=== PATIENT | female | born 1965 ===

== ENCOUNTER 2018-05-25 22:18 | Emergency (ER) | payer MEDICARE, OTHER ==
[~2018-05-25] VITALS: Ht 165.1 cm; Wt 126.5 kg
== END 2018-05-26 00:15 | disposition home or self-care (01) ==
LOC: ER 22:18
DX: F41.9 Anxiety disorder, unspecified (principal); Z88.1 Allergy status to other antibiotic agents; Z88.0 Allergy status to penicillin; Z88.8 Allergy status to other drugs, medicaments and biological substances
CPT/HCPCS: 96372; 99283-25; J2060

== ENCOUNTER 2018-09-25 13:22 | Emergency (ER) | payer MEDICARE, OTHER ==
[~2018-09-25] VITALS: Ht 165.1 cm; Wt 113.4 kg
[2018-09-25] MEDS ORDERED: Micro-K10 MEQ (13:57)
[2018-09-25] MEDS ORDERED: FURO40 PO (13:57)
[2018-09-25] MEDS ORDERED: Robaxin500 MG PO (15:24)
== END 2018-09-25 15:45 | disposition home or self-care (01) ==
LOC: ER 13:22
DX: R25.2 Cramp and spasm (principal); F41.9 Anxiety disorder, unspecified; F17.200 Nicotine dependence, unspecified, uncomplicated; Z88.1 Allergy status to other antibiotic agents; Z88.0 Allergy status to penicillin; Z88.8 Allergy status to other drugs, medicaments and biological substances; Z79.899 Other long term (current) drug therapy
CPT/HCPCS: 93926; 93971; 99283-25

== ENCOUNTER 2018-09-26 23:39 | Emergency (ER) | payer MEDICARE, OTHER ==
[~2018-09-26] VITALS: Ht 165.1 cm; Wt 114.3 kg
[~2018-09-26 23:39] MED LIST: FURO40 PO; Micro-K10 MEQ; Robaxin500 MG PO
[2018-09-27 04:30] LABS: Calcium, Ionized (POC) 1.16 mmol/L (1.10-1.46); Chloride (POC) 106 mmol/L (98-108); Creatinine (POC) 0.5 mg/dL (0.6-1.0); Glucose (ISTAT POC) 106 mg/dL (70-99); Hemoglobin (POC) 15.3 g/dL (12.0-16.0); Potassium (POC) 3.8 mmol/L (3.5-5.5); Sodium (POC) 143 mmol/L (135-148); Total CO2 (POC) 24 mmol/L (21-32)
[2018-09-27] MEDS ORDERED: Voltaren100 GM TOP (05:08)
[2018-09-27] MEDS ORDERED: NAPR500 PO (05:30)
== END 2018-09-27 05:57 | disposition home or self-care (01) ==
LOC: ER 23:39
PROVIDERS: Emergency Medicine
DX: M79.604 Pain in right leg (principal); M79.605 Pain in left leg; Z88.1 Allergy status to other antibiotic agents; Z88.0 Allergy status to penicillin; Z79.899 Other long term (current) drug therapy; Z88.8 Allergy status to other drugs, medicaments and biological substances; F41.9 Anxiety disorder, unspecified; F17.200 Nicotine dependence, unspecified, uncomplicated
CPT/HCPCS: 80047; 85014; 93971; 99284-25

== ENCOUNTER 2019-03-07 18:56 | Inpatient (IN) | payer MEDICARE, OTHER ==
[~2019-03-07] VITALS: Ht 165.1 cm; Wt 111.0 kg
[~2019-03-07 18:56] MED LIST changes: +Bactrim Ds Tab1 EACH PO; +Flagyl500 MG PO; +IBUP600 PO; +NAPR500 PO; +Voltaren100 GM TOP
[2019-03-07 19:42] LABS: BASOPHILS ABSOLUTE AUTO 0.03 K/mm3 (0.00-0.23); BASOPHILS PERCENT AUTO 0 % (0-2); EOSINOPHILS ABSOLUTE AUTO 0.07 K/mm3 (0.00-0.68); EOSINOPHILS PERCENT AUTO 1 % (0-6); Hematocrit 37.9 % (33.0-51.0); Hemoglobin 12.1 g/dL (11.5-16.0); IMMATURE GRAN ABSOLUTE AUTO 0.04 K/mm3 (0.00-0.10); IMMATURE GRAN PERCENT AUTO 0 % (0-1); LYMPHOCYTES ABSOLUTE AUTO 2.17 K/mm3 (0.84-5.20); LYMPHOCYTES PERCENT AUTO 17 % (21-46); MONOCYTES ABSOLUTE AUTO 0.43 K/mm3 (0.16-1.47); MONOCYTES PERCENT AUTO 3 % (4-13); Mean Corpuscular HGB 29.2 pg (26.0-34.0); Mean Corpuscular HGB Conc 31.9 g/dL (31.5-36.5); Mean Corpuscular Volume 91 fL (80-100); Mean Platelet Volume 9.7 fL (9.1-12.4); NEUTROPHILS ABSOLUTE AUTO 10.22 K/mm3 (1.96-9.15); NEUTROPHILS PERCENT AUTO 79 % (41-73); Platelet Count 213 K/mm3 (150-400); RDW Coefficient Variation 12.9 % (11.7-14.2); RDW Standard Deviation 43.5 fL (35.1-46.3); Red Blood Cell Count 4.15 M/mm3 (3.80-5.20); White Blood Cell Count 12.96 K/mm3 (4.00-11.30)
[2019-03-07 20:08] LABS: Alanine Aminotransfer (ALT/SGP 15 U/L (12-78); Albumin/Globulin Ratio 0.8 (0.8-1.8); Alk Phos 65 U/L (50-136); Anion Gap 3 mmol/L (6-16); Aspartate Aminotrans (AST/SGOT 8 U/L (12-37); Bilirubin, Total 0.3 mg/dL (0.1-1.0); Blood Urea Nitrogen 13 mg/dL (8-24); Bun/Creatinine Ratio 20.4 (12.0-20.0); CO2, Blood 28 mmol/L (21-32); Calcium, Blood 8.8 mg/dL (8.5-10.1); Chloride, Blood 108 mmol/L (98-108); Creatinine, Blood 0.64 mg/dL (0.40-1.00); Globulin, Blood 3.7 g/dL (2.2-4.0); Glomerular Filtration Rate >60 (60-); Glucose, Blood 88 mg/dL (70-99); Potassium, Blood 3.5 mmol/L (3.5-5.5); Sodium, Blood 139 mmol/L (136-145); Total Protein, Blood 6.7 g/dL (6.4-8.2)
[2019-03-07] MEDS ORDERED: IBUP600 PO (21:30)
[2019-03-07] MEDS ORDERED: METR500 PO (21:30)
[2019-03-07] MEDS ORDERED: Bactrim Ds Tab1 EACH PO (21:31)
[2019-03-07] MEDS ORDERED: Vitamin B-121000 MCG PO (21:31)
[2019-03-07] MEDS ORDERED: Meribin5 MG PO (21:31)
[2019-03-07] MEDS ORDERED: Apple Cider Vi500 MG PO (21:32)
[2019-03-07] MEDS ORDERED: St. John's Wor300 M1 PO (21:32)
[2019-03-07] MEDS ORDERED: BEE POLLEN550 MG PO (21:32)
[2019-03-08 05:33] LABS: Hematocrit 37.2 % (33.0-51.0); Hemoglobin 11.9 g/dL (11.5-16.0); Mean Corpuscular HGB 29.1 pg (26.0-34.0); Mean Corpuscular Volume 91 fL (80-100); Mean Platelet Volume 10.1 fL (9.1-12.4); Platelet Count 219 K/mm3 (150-400); Red Blood Cell Count 4.09 M/mm3 (3.80-5.20); White Blood Cell Count 22.96 K/mm3 (4.00-11.30)
--- NOTE | 2019-03-08 05:43 | NUR ---
SHIFT SUMMARY PATIENT ADMITTED FROM ER. PATIENT COMPLAINTS OF LOWER ABD PAIN. RECEIVED PO PAIN MEDICATIONS THEN STATED THAT THE PAIN HAD EXTENDED UP TO THE UPPER ABD REGION. GAVE PATIENT 1 DOSE OF IV DILAUDID AT WHICH POINT SHE STATED SHE WAS FEELING MUCH BETTER. PATIENT STATES MULTIPLE TIMES THAT SHE IS ANXIOUS ABOUT HOSPITALIZATION. PATIENT REQUESTED FWW TO GET UP TO BSC. STANDBY ASSIST WITH FWW TO BSC. AAOX4. IV IN LEFT AC PATENT.
[2019-03-08 05:58] LABS: BAND PERCENT MAN 26 % (0-8); BASOPHILS PERCENT MAN 0 % (0-2); EOSINOPHILS PERCENT MAN 0 % (0-6); LYMPHOCYTES ABSOLUTE MAN 1.14 K/mm3 (0.84-5.20); LYMPHOCYTES PERCENT MAN 5 % (21-46); METAMYELOCYTE ABSOLUTE MAN 0.22 K/mm3 (0.00-0.00); METAMYELOCYTE PERCENT MAN 1 % (0-0); MONOCYTES ABSOLUTE MAN 0.91 K/mm3 (0.16-1.47); MONOCYTES PERCENT MAN 4 % (4-13); NEUTROPHILS ABSOLUTE MAN 20.66 K/mm3 (1.96-9.15); SEG NEUTROPHILS PERCENT MAN 64 % (41-73); TOTAL CELLS COUNTED 100
--- NOTE | 2019-03-08 16:50 | NUR ---
PATIENT IS ALERT AND ORIENTED AND ABLE TO EXPRESS ANY NEEDS. SHE WAS FINALLY ABLE TO SLEEP AFTER CPAP INSTALLED. SHE HAS HAD COMPLAINTS OF BELLY PAIN AND WAS GIVEN PAIN MEDS PER EMAR. CALL LIGHT WITHIN REACH.
[2019-03-09 04:58] LABS: BASOPHILS ABSOLUTE AUTO 0.05 K/mm3 (0.00-0.23); BASOPHILS PERCENT AUTO 0 % (0-2); EOSINOPHILS ABSOLUTE AUTO 0.16 K/mm3 (0.00-0.68); EOSINOPHILS PERCENT AUTO 1 % (0-6); Hematocrit 36.6 % (33.0-51.0); Hemoglobin 11.6 g/dL (11.5-16.0); IMMATURE GRAN ABSOLUTE AUTO 0.07 K/mm3 (0.00-0.10); IMMATURE GRAN PERCENT AUTO 1 % (0-1); LYMPHOCYTES ABSOLUTE AUTO 2.54 K/mm3 (0.84-5.20); LYMPHOCYTES PERCENT AUTO 17 % (21-46); MONOCYTES ABSOLUTE AUTO 0.81 K/mm3 (0.16-1.47); MONOCYTES PERCENT AUTO 5 % (4-13); Mean Corpuscular HGB 29.7 pg (26.0-34.0); Mean Corpuscular HGB Conc 31.7 g/dL (31.5-36.5); Mean Platelet Volume 9.9 fL (9.1-12.4); NEUTROPHILS ABSOLUTE AUTO 11.72 K/mm3 (1.96-9.15); NEUTROPHILS PERCENT AUTO 76 % (41-73); Platelet Count 208 K/mm3 (150-400); RDW Coefficient Variation 13.1 % (11.7-14.2); RDW Standard Deviation 45.3 fL (35.1-46.3); White Blood Cell Count 15.35 K/mm3 (4.00-11.30)
[2019-03-09 04:59] LABS: Mean Corpuscular Volume 94 fL (80-100)
[2019-03-09 05:16] LABS: Anion Gap 7 mmol/L (6-16); Blood Urea Nitrogen 15 mg/dL (8-24); Bun/Creatinine Ratio 26.6 (12.0-20.0); CO2, Blood 25 mmol/L (21-32); Calcium, Blood 8.6 mg/dL (8.5-10.1); Chloride, Blood 107 mmol/L (98-108); Creatinine, Blood 0.56 mg/dL (0.40-1.00); Glomerular Filtration Rate >60 (60-); Glucose, Blood 104 mg/dL (70-99); Sodium, Blood 139 mmol/L (136-145)
--- NOTE | 2019-03-09 07:37 | NUR ---
PATIENT COMPLAINED OF LOW ABDOMENAL PAIN THRU THE SHIFT AND RECEIVD PAIN MEDS PER EMAR. THEN PT HAD A LARGE BM AND NOW PAIN AND HAS BEEN PAIN FREE SINCE. PT DID SAY THAT SHE PREFERRED TO HAVE AN ALTERNATIVE
--- NOTE | 2019-03-09 18:16 | NUR ---
SHIFT SUMMARY OX4 INDEPENDENT IN ROOM. ABDOMINAL PAIN VERY MINIMAL REFUSED OFFER FOR PAIN MEDICATION. TOLERATING ALL MEALS WELL TODAY NO C/O NAUSEA. 2 LARGE BOWEL MOVEMENTS OVER PAST 24 HOURS. REFUSED BOWEL CARE. PLEASANT. CHANGED TO PO ANTIBIOTICS THIS SHIFT WITH POSSIBLE DISCHARGE TOMORROW.
--- NOTE | 2019-03-09 19:59 | NUR ---
1916: ASSUMED CARE OF PATIENT. PT SITTING IN BED IN NO APPARENT DISTRESS. PT IS INDEPENDENT IN THE ROOM. PT STATES SHE IS HAVING TO PEE ALOT BUT NO BURNING OR DYSURIA. RESP EVEN AND UNLABORED. SHE DENIES PAIN AT THIS TIME. SHES HAD ANOTHER BM DURING THE DAY AND ATE SOFT FOODS TODAY AND IS FEELING BETTER. CALL MARY WITHIN REACH.
[2019-03-10] MEDS ORDERED: METR500 PO (11:12)
[2019-03-10] MEDS ORDERED: Bactrim Ds Tab1 EACH PO (11:14)
[2019-03-10] MEDS ORDERED: ACET500 PO (11:14)
--- NOTE | 2019-03-10 11:36 | NUR ---
PT DISCHARGED VIA W/C WITH SELF VIA TAXI TO HOME. VOUCHER PROVIDED. NO IV AT TIME OF DISCHARGE. ALL BELONGININGS RETURNED. VERBALIZED UNDERSTANDING OF DISCHARGE INSTRUCTIONS AND IMPORTANCE OF TAKING MEDICATIONS PRESCRIBED. RX FAXED TO [facility] PRIOR TO DISCHARGE.
== END 2019-03-10 11:30 | disposition home or self-care (01) | DRG 872 ==
LOC: ER 18:56 → MEDS 18:57 → ENPENDDIS 03-10 11:00 → MEDS 03-10 11:30
PROVIDERS: Emergency Medicine; Internal Medicine; ADMIT Hospitalist
DX: A41.9 Sepsis, unspecified organism (principal); K57.20 Diverticulitis of large intestine with perforation and abscess without bleeding; E66.01 Morbid (severe) obesity due to excess calories; F17.210 Nicotine dependence, cigarettes, uncomplicated; F32.9 Major depressive disorder, single episode, unspecified; F41.9 Anxiety disorder, unspecified; Z68.39 Body mass index [BMI] 39.0-39.9, adult; Z88.1 Allergy status to other antibiotic agents; Z88.0 Allergy status to penicillin
CPT/HCPCS: 36415; 74177; 80048; 80053; 81001; 83690; 85025; 87040; 87086; 94660; 94762; 96361; 96365-59; 96366; 96372; 96374; 96375; 96376; 99284-25; 99285-25; A9270-GY; G0378; J1170; J1650; J1885; J2405; J2543; J7030; Q9967

== ENCOUNTER 2021-01-06 03:24 | Inpatient (IN) | payer MEDICARE, OTHER ==
[~2021-01-06] VITALS: Ht 165.1 cm; Wt 108.0 kg
[~2021-01-06 03:24] MED LIST changes: +ACET500 PO; +Apple Cider Vi500 MG PO; +BEE POLLEN550 MG PO; +METR500 PO; +Meribin5 MG PO; +St. John's Wor300 M1 PO; +Vitamin B-121000 MCG PO
[2021-01-06 04:02] LABS: BASOPHILS ABSOLUTE AUTO 0.07 K/mm3 (0.00-0.23); BASOPHILS PERCENT AUTO 0 % (0-2); EOSINOPHILS ABSOLUTE AUTO 0.04 K/mm3 (0.00-0.68); EOSINOPHILS PERCENT AUTO 0 % (0-6); Hematocrit 41.3 % (33.0-51.0); Hemoglobin 13.6 g/dL (11.5-16.0); IMMATURE GRAN ABSOLUTE AUTO 0.05 K/mm3 (0.00-0.10); IMMATURE GRAN PERCENT AUTO 0 % (0-1); LYMPHOCYTES ABSOLUTE AUTO 2.24 K/mm3 (0.84-5.20); LYMPHOCYTES PERCENT AUTO 14 % (21-46); MONOCYTES ABSOLUTE AUTO 1.01 K/mm3 (0.16-1.47); MONOCYTES PERCENT AUTO 6 % (4-13); Mean Corpuscular HGB 29.1 pg (26.0-34.0); Mean Corpuscular HGB Conc 32.9 g/dL (31.5-36.5); Mean Corpuscular Volume 88 fL (80-100); Mean Platelet Volume 9.6 fL (9.1-12.4); NEUTROPHILS ABSOLUTE AUTO 13.08 K/mm3 (1.96-9.15); NEUTROPHILS PERCENT AUTO 79 % (41-73); Platelet Count 231 K/mm3 (150-400); RDW Standard Deviation 42.2 fL (35.1-46.3); Red Blood Cell Count 4.67 M/mm3 (3.80-5.20); White Blood Cell Count 16.49 K/mm3 (4.00-11.30)
[2021-01-06 04:19] LABS: Alanine Aminotransfer (ALT/SGP 13 U/L (12-78); Albumin/Globulin Ratio 0.7 (0.8-1.8); Alk Phos 51 U/L (50-136); Anion Gap 4 mmol/L (6-16); Aspartate Aminotrans (AST/SGOT 8 U/L (12-37); Bilirubin, Total 0.5 mg/dL (0.1-1.0); Blood Urea Nitrogen 11 mg/dL (8-24); Bun/Creatinine Ratio 18.9 (12.0-20.0); CO2, Blood 26 mmol/L (21-32); Calcium, Blood 8.8 mg/dL (8.5-10.1); Chloride, Blood 104 mmol/L (98-108); Creatinine, Blood 0.58 mg/dL (0.40-1.00); Globulin, Blood 4.2 g/dL (2.2-4.0); Glomerular Filtration Rate >60 (60-); Glucose, Blood 122 mg/dL (70-99); Potassium, Blood 3.5 mmol/L (3.5-5.5); Sodium, Blood 134 mmol/L (136-145); Total Protein, Blood 7.2 g/dL (6.4-8.2)
[2021-01-06 05:24] LABS: Source, Urine Clean Catch
[2021-01-06 05:34] LABS: Bilirubin, Urine Neg (Neg); Blood, Urine Neg (Neg); Glucose Qualitative, Urine Neg (Neg); Ketones, Urine 2+ (Neg); Leukocyte Esterase, Urine Neg (Neg); Nitrite, Urine Neg (Neg); Protein, Urine Neg (Neg); Specific Gravity, Urine 1.015 (1.003-1.022); Urobilinogen, Urine NORM (Normal)
[2021-01-06 05:36] LABS: Appearance, Urine Clear (Clear); Color, Urine Yellow (P-Yellow)
[2021-01-06] MEDS ORDERED: DICLOFENAC SOD100 GM TOP (09:30)
--- NOTE | 2021-01-06 16:59 | NUR ---
SHIFT SUMMARY ED ADMIT. MEDICATED X2 FOR PAIN, X1 FOR NAUSEA. DENIES SHORTNESS OF BREATH. UP SBA W/FWW TO BR. TOLERATING CLEAR LIQUID DIET. PLEASANT AND COOPERATIVE WITH CARE. PENDING TRANSFER TO SURGICAL FLOOR RM [id number].
--- NOTE | 2021-01-07 03:25 | NUR ---
A/OX4. VSS ON RA. TOLERATED CPAP WHEN ASLEEP. PAIN MANAGED WELL W. NORCO AND FENTANYL. TOLERATING CLEAR FLUIDS WELL. CONTINOUS IV FLUIDS INFUSING. INDEPENDENT IN ROOM. USING CALL LIGHT TO MAKE NEEDS KNOWN.
[2021-01-07 04:13] LABS: Hematocrit 36.8 % (33.0-51.0); Hemoglobin 12.1 g/dL (11.5-16.0); Mean Corpuscular HGB 29.6 pg (26.0-34.0); Mean Corpuscular HGB Conc 32.9 g/dL (31.5-36.5); Mean Corpuscular Volume 90 fL (80-100); Mean Platelet Volume 9.6 fL (9.1-12.4); Platelet Count 214 K/mm3 (150-400); RDW Coefficient Variation 13.2 % (11.7-14.2); RDW Standard Deviation 43.7 fL (35.1-46.3); Red Blood Cell Count 4.09 M/mm3 (3.80-5.20); White Blood Cell Count 11.81 K/mm3 (4.00-11.30)
[2021-01-07 04:31] LABS: Anion Gap 3 mmol/L (6-16); Blood Urea Nitrogen 9 mg/dL (8-24); Bun/Creatinine Ratio 15.1 (12.0-20.0); CO2, Blood 29 mmol/L (21-32); Calcium, Blood 8.6 mg/dL (8.5-10.1); Chloride, Blood 106 mmol/L (98-108); Glomerular Filtration Rate >60 (60-); Glucose, Blood 100 mg/dL (70-99); Potassium, Blood 3.6 mmol/L (3.5-5.5); Sodium, Blood 138 mmol/L (136-145)
--- NOTE | 2021-01-07 17:42 | NUR ---
SHIFT SUMMARY PT AOOX4. PT UP AND AMBULATING FREQUENTLY IN ROOM. PAIN 8/10 AT BEGINNING OF SHIFT, REQUIRING 2 PAIN PILLS FOUR HOURS. NEW ORDERS FOR TORODOL GIVEN, PT REPORTS PAIN IS MUCH IMPROVED NOW RATES AT 3/10. TOOK A SHOWER TODAY. TOLERATING CLEAR LIQUID DIET WELL. DENIES FLATUS OR BM, STARTING STOOL SOFTNERS TONIGHT. PLAN IS TO CONTINUE WITH ANTIBIOTICS AND PAIN MANAGEMENT.
--- NOTE | 2021-01-08 06:42 | NUR ---
A/OX4. VSS ON RA. TOLERATED CPAP WHEN ASLEEP. PAIN MANAGED WELL W/ PRN PAIN MEDS. CONTINOUS FLUIDS INFUSING. ZOFRAN GIVEN FOR NAUSEA. SBA TO TOILET W/ FWW. PATIENT NO ABLE TO SLEEP WELL. WOULD LIKE [facility] TOMORROW NIGHT.
--- NOTE | 2021-01-08 19:44 | NUR ---
SHIFT SUMMARY PT HAS HAD INCREASED ABD PAIN THIS AFTERNOON. PAIN HAS BEEN MANAGED WITH FENTANYL AND NORCO. PT ENCOURAGED TO AMBULATE AND WAS GIVEN MIRALAX TO ASSIST WITH CONSTIPATION. PT IS TOLERATING FULL LIQUID DIET ALTHOUGH SHE DOES APPEAR TO HAVE SOME INCREASED PAIN AFTER EATING. REPORT GIVEN TO LEE BURRELL.
[2021-01-09 04:54] LABS: BASOPHILS ABSOLUTE AUTO 0.08 K/mm3 (0.00-0.23); BASOPHILS PERCENT AUTO 1 % (0-2); EOSINOPHILS ABSOLUTE AUTO 0.13 K/mm3 (0.00-0.68); EOSINOPHILS PERCENT AUTO 2 % (0-6); Hematocrit 36.5 % (33.0-51.0); Hemoglobin 11.9 g/dL (11.5-16.0); IMMATURE GRAN ABSOLUTE AUTO 0.03 K/mm3 (0.00-0.10); IMMATURE GRAN PERCENT AUTO 0 % (0-1); LYMPHOCYTES PERCENT AUTO 34 % (21-46); MONOCYTES ABSOLUTE AUTO 0.65 K/mm3 (0.16-1.47); MONOCYTES PERCENT AUTO 10 % (4-13); Mean Corpuscular HGB 29.2 pg (26.0-34.0); Mean Corpuscular HGB Conc 32.6 g/dL (31.5-36.5); Mean Corpuscular Volume 90 fL (80-100); NEUTROPHILS ABSOLUTE AUTO 3.63 K/mm3 (1.96-9.15); NEUTROPHILS PERCENT AUTO 53 % (41-73); Platelet Count 254 K/mm3 (150-400); RDW Coefficient Variation 12.7 % (11.7-14.2); RDW Standard Deviation 41.2 fL (35.1-46.3); Red Blood Cell Count 4.07 M/mm3 (3.80-5.20); White Blood Cell Count 6.82 K/mm3 (4.00-11.30)
--- NOTE | 2021-01-09 05:44 | NUR ---
SHIFT SUMMARY S/P ACUTE DIVERTICULITIS W/ MICRO PERF, PT CONTINUES TO BE NON SURGICAL, A/O X4, VSS, TOLERATING PO, VOIDING, PASSING FLATUS BUT NO BM, BOWEL CARE CONTINUES, PAIN WELL MANAGED PER EMAR. CALL LIGHT IN REACH, WILL CTM AND REPORT TO MYNOR PHILLIPS RN.
[2021-01-09] MEDS ORDERED: HYDR1TAB94 PO (13:02)
[2021-01-09] MEDS ORDERED: CEFP200 PO (13:03)
--- NOTE | 2021-01-09 14:08 | NUR ---
DISCHARGE PT PROVIDED WITH WRITTEN AND VERBAL DISCHARGE INSTRUCTIONS, SHE REPORTED UNDERSTANDING INSTRUCTIONS. PT CALLED FOR A TAXI FOR TRANSPORT HOME. PT EDUCATED TO NOT DRIVE WHILE TAKING PAIN MEDICATIONS. PRESCRIPTION FOR MEDICATIONS PROVIDED. BELONGINGS SENT HOME WITH PT. PT ASSISTED OUT IN W/C BY THIS RN.
== END 2021-01-09 13:53 | disposition home or self-care (01) | DRG 392 ==
LOC: ER 03:24 → ERHOLD 03:25 → MEDS 09:15 → SURS 18:56
PROVIDERS: Emergency Medicine; ADMIT Surgery
DX: K57.20 Diverticulitis of large intestine with perforation and abscess without bleeding (principal); F41.9 Anxiety disorder, unspecified; F17.210 Nicotine dependence, cigarettes, uncomplicated; Z90.710 Acquired absence of both cervix and uterus; Z98.890 Other specified postprocedural states; Z88.0 Allergy status to penicillin; Z88.1 Allergy status to other antibiotic agents; Z88.8 Allergy status to other drugs, medicaments and biological substances; Z79.899 Other long term (current) drug therapy
CPT/HCPCS: 36415; 74177; 80048; 80053; 81003; 83690; 85025; 85027; 94660; 94760; 94762; 96365-59; 96375; 99285-25; A9270; J0694; J1885; J2270; J2405; J3010; J7030; J7120; Q9967

== ENCOUNTER 2021-04-24 01:27 | Inpatient (IN) | payer MEDICARE, OTHER ==
[~2021-04-24] VITALS: Ht 165.1 cm; Wt 107.5 kg
[~2021-04-24 01:27] MED LIST changes: +CEFP200 PO; +DICLOFENAC SOD100 GM TOP; +HYDR1TAB94 PO
[2021-04-24 02:31] LABS: BASOPHILS ABSOLUTE AUTO 0.06 K/mm3 (0.00-0.23); BASOPHILS PERCENT AUTO 1 % (0-2); EOSINOPHILS ABSOLUTE AUTO 0.05 K/mm3 (0.00-0.68); EOSINOPHILS PERCENT AUTO 0 % (0-6); Hematocrit 46.4 % (33.0-51.0); Hemoglobin 15.2 g/dL (11.5-16.0); IMMATURE GRAN ABSOLUTE AUTO 0.04 K/mm3 (0.00-0.10); IMMATURE GRAN PERCENT AUTO 0 % (0-1); LYMPHOCYTES ABSOLUTE AUTO 1.72 K/mm3 (0.84-5.20); LYMPHOCYTES PERCENT AUTO 13 % (21-46); MONOCYTES ABSOLUTE AUTO 0.58 K/mm3 (0.16-1.47); MONOCYTES PERCENT AUTO 4 % (4-13); Mean Corpuscular HGB 29.3 pg (26.0-34.0); Mean Corpuscular HGB Conc 32.8 g/dL (31.5-36.5); Mean Corpuscular Volume 90 fL (80-100); Mean Platelet Volume 9.6 fL (9.1-12.4); NEUTROPHILS ABSOLUTE AUTO 10.72 K/mm3 (1.96-9.15); NEUTROPHILS PERCENT AUTO 81 % (41-73); Platelet Count 261 K/mm3 (150-400); RDW Coefficient Variation 13.5 % (11.7-14.2); RDW Standard Deviation 44.6 fL (35.1-46.3); Red Blood Cell Count 5.18 M/mm3 (3.80-5.20); White Blood Cell Count 13.17 K/mm3 (4.00-11.30)
[2021-04-24 02:43] LABS: Alanine Aminotransfer (ALT/SGP 27 U/L (12-78); Albumin, Blood 3.5 g/dL (3.4-5.0); Albumin/Globulin Ratio 0.9 (0.8-1.8); Alk Phos 61 U/L (50-136); Anion Gap 4 mmol/L (6-16); Aspartate Aminotrans (AST/SGOT 16 U/L (12-37); Bilirubin, Total 0.5 mg/dL (0.1-1.0); Blood Urea Nitrogen 12 mg/dL (8-24); Bun/Creatinine Ratio 19.2 (12.0-20.0); CO2, Blood 29 mmol/L (21-32); Calcium, Blood 9.3 mg/dL (8.5-10.1); Chloride, Blood 106 mmol/L (98-108); Creatinine, Blood 0.63 mg/dL (0.40-1.00); Glomerular Filtration Rate >60 (60-); Glucose, Blood 123 mg/dL (70-99); Potassium, Blood 3.9 mmol/L (3.5-5.5); Sodium, Blood 139 mmol/L (136-145); Total Protein, Blood 7.5 g/dL (6.4-8.2)
[2021-04-24 03:49] LABS: Source, Urine Clean Catch
[2021-04-24 03:51] LABS: Bilirubin, Urine Neg (Neg); Blood, Urine Neg (Neg); Glucose Qualitative, Urine Neg (Neg); Ketones, Urine Neg (Neg); Leukocyte Esterase, Urine Neg (Neg); Nitrite, Urine Neg (Neg); Protein, Urine Neg (Neg); Specific Gravity, Urine 1.015 (1.003-1.022); Urobilinogen, Urine NORM (Normal)
[2021-04-24 03:54] LABS: Appearance, Urine Clear (Clear); Color, Urine Yellow (P-Yellow)
[2021-04-24 06:46] LABS: SARS-Cov-2 (COVID-19) PCR, MMC NEGATIVE (NEGATIVE)
--- NOTE | 2021-04-24 18:42 | NUR ---
SHIFT ASSESSMENT UP TO BATHROOM INDEPENDENTLY PUSHING IV POLE. MEDICATED FOR PAIN APPROX Q4 HOURS. FEELS BLOATED AND HAS TENDERNESS WITH PALPATION. DR. OWENS IN TO SEE PT WITH CURRENT DESICION TO TREAT CONSERVATIVELY. NO NAUSEA.
--- NOTE | 2021-04-25 19:00 | NUR ---
ASSUMED CARE RECEIVED REPORT FROM INDRA SANTOS. PT RESTING, IN NAD. NO ACUTE NEEDS ASSESSED AT THIS TIME. CALL LIGHT, POSSESSIONS IN REACH, BED IN LOW AND LOCKED POSITION.
--- NOTE | 2021-04-25 19:26 | NUR ---
SHIFT SUMMARY PT HAS BEEN RECEIVING BOWEL PREP FOR MOST OF DAY AND HAS TOLERATED IT WELL. HAS BEEN HAVING BMS WHICH REPORTED ITS TURNING YELLOW THIS EVENING. INDEPENDENT TO BATHROOM. NO PAIN UNTIL THIS EVENING. CHEERFUL AND HOPING TO HAVE SURGERY SOMETIME IN NEXT 2 DAYS.
[2021-04-26 05:24] LABS: Hematocrit 38.7 % (33.0-51.0); Hemoglobin 12.8 g/dL (11.5-16.0); Mean Corpuscular HGB 29.9 pg (26.0-34.0); Mean Corpuscular HGB Conc 33.1 g/dL (31.5-36.5); Mean Corpuscular Volume 90 fL (80-100); Mean Platelet Volume 9.8 fL (9.1-12.4); Platelet Count 205 K/mm3 (150-400); RDW Coefficient Variation 13.2 % (11.7-14.2); RDW Standard Deviation 44.2 fL (35.1-46.3); Red Blood Cell Count 4.28 M/mm3 (3.80-5.20); White Blood Cell Count 12.05 K/mm3 (4.00-11.30)
[2021-04-26 05:48] LABS: Albumin, Blood 2.7 g/dL (3.4-5.0); Anion Gap 7 mmol/L (6-16); Blood Urea Nitrogen 4 mg/dL (8-24); Bun/Creatinine Ratio 7.8 (12.0-20.0); CO2, Blood 25 mmol/L (21-32); Calcium, Blood 8.7 mg/dL (8.5-10.1); Chloride, Blood 108 mmol/L (98-108); Creatinine, Blood 0.52 mg/dL (0.40-1.00); Glomerular Filtration Rate >60 (60-); Glucose, Blood 114 mg/dL (70-99); Phosphorus, Blood 2.1 mg/dL (2.5-4.9); Potassium, Blood 3.5 mmol/L (3.5-5.5); Prealbumin, Blood 13.5 mg/dL (20.0-40.0); Sodium, Blood 140 mmol/L (136-145)
--- NOTE | 2021-04-26 06:36 | NUR ---
SHIFT SUMMARY PT RESTING, APPEARS TO BE COMFORTABLE. SLEPT ON AND OFF T/O NIGHT. PT APPEARED TO HAVE A ROUGH NIGHT, HAVING ONGOING LLQ ABD PAIN, WITH MINIMAL RELIEF FROM PAIN MEDICATION. PAIN APPEARS TO BE BETTER CONTROLLED AFTER INCREASING DOSE OF IV FENTANYL. VS REVIEWED,WNL; BP'S STABLE. MEDICATED FOR NAUSEA X1. NO ACUTE NEEDS ASSESSED AT THIS TIME. DENIES NEEDS. CALL LIGHT, POSSESSIONS IN REACH, BED IN LOW AND LOCKED POSITION. IVF INFUSING ORDERED. WILL REPORT OFF TO ONCOMING RN.
--- NOTE | 2021-04-26 17:00 | NUR ---
SHIFT SUMMARY PT INDEPENDENT IN ROOM TO BATHROOM. TOLERATING SIPS OF CLEAR LIQUIDS WITH NO INCREASE IN PAIN OR NAUSEA. PLANS FOR SURGERY TOMORROW. ANXIOUS BUT HOPING TO BE DONE WITH DEALING WITH ONGOING ISSUE.
--- NOTE | 2021-04-26 19:05 | NUR ---
ASSUMED CARE RECEIVED REPORT FROM INDRA SANTOS. PT RESTING, TALKING TO FAMILY. IN NAD. DENIES PAIN AT THIS TIME. CALL LIGHT, POSSESSIONS IN REACH.
--- NOTE | 2021-04-27 04:07 | NUR ---
SHIFT SUMMARY PT ASLEEP, IN NAD. APPEARED TO SLEEP ON AND OFF T/O NIGHT. HAS BEEN NPO SINCE MIDNIGHT FOR SURGERY THIS AM. MEDICATED X1 FOR C/O DIFFUSE LOWER ABD PAIN, WITH GOOD RELIEF. NO C/O NAUSEA THUS FAR THIS SHIFT. APPEARS TO BE LESS ANXIOUS REGARDING HER PROCEDURE THIS AM. NO ACUTE NEEDS ASSESSED AT THIS TIME. CALL LIGHT, POSSESSIONS IN REACH, BED IN LOW AND LOCKED POSITION. IVF INFUSING ORDERED. WILL CONTINUE TO PROVIDE CARE UNTIL REPORT GIVEN TO ONCOMING RN.
--- NOTE | 2021-04-27 14:46 | NUR ---
PATEINT INTO [facility] VIA [facility] FROM [facility]. History, Chart, Medications and Allergies reviewed before start of procedure.Patient confirms NPO status and agrees with scheduled surgery.
--- NOTE | 2021-04-27 21:15 | NUR ---
PT ARRIVED FROM OR PT ARRIVED FROM OR VIA GURNEY. PT COMPLAINS OF PAIN AND NAUSEA UPON ARRIVAL MEDICATED PER EMAR. PT ASSESSMENT COMPLETED @ THIS TIME.
[2021-04-28 04:22] LABS: Hematocrit 38.5 % (33.0-51.0); Hemoglobin 12.8 g/dL (11.5-16.0); Mean Corpuscular HGB 29.6 pg (26.0-34.0); Mean Corpuscular HGB Conc 33.2 g/dL (31.5-36.5); Mean Corpuscular Volume 89 fL (80-100); Mean Platelet Volume 9.5 fL (9.1-12.4); Platelet Count 246 K/mm3 (150-400); RDW Coefficient Variation 12.9 % (11.7-14.2); RDW Standard Deviation 42.4 fL (35.1-46.3); Red Blood Cell Count 4.33 M/mm3 (3.80-5.20); White Blood Cell Count 12.11 K/mm3 (4.00-11.30)
[2021-04-28 04:41] LABS: Anion Gap 7 mmol/L (6-16); Blood Urea Nitrogen 7 mg/dL (8-24); Bun/Creatinine Ratio 14.2 (12.0-20.0); CO2, Blood 24 mmol/L (21-32); Calcium, Blood 8.6 mg/dL (8.5-10.1); Chloride, Blood 109 mmol/L (98-108); Creatinine, Blood 0.49 mg/dL (0.40-1.00); Glomerular Filtration Rate >60 (60-); Glucose, Blood 122 mg/dL (70-99); Potassium, Blood 3.5 mmol/L (3.5-5.5); Sodium, Blood 140 mmol/L (136-145)
--- NOTE | 2021-04-28 05:09 | NUR ---
SHIFT SUMMARY PT A&O AND IN PLEASENT MOOD T/O SHIFT. VSS. PAIN MANAGED PER EMAR. 5 LAP SITES ON ABD CDI. SCDS IN PLACE. RESTING IN BED T/O NIGHT. BT PRESENT IN ALL 4QS. TOLERATING ORAL INTAKE WELL. CALL LIGHT W/IN REACH.
--- NOTE | 2021-04-28 17:02 | NUR ---
SHIFT SUMMARY A/OX4. VITAL SIGNS STABLE. POD1 FOR SIG COLECTOMY WITH L OOPHERECTOMY. 5 LAP SITES, DERMABONDED AND OPEN TO AIR. DC'D WORLEY TODAY. PT VOIDING BUT DENIES PASSING FLATUS AND BOWEL MOVEMENT ON THIS SHIFT. PT TOLERATING CLEAR LIQ PO INTAKE, TO ADVANCE TOLERATED. AMBULATING INDEPENDENTLY IN RM. BEING TREATED PER EMAR FOR PAIN. WILL REPORT TO ONCOMING RN.
--- NOTE | 2021-04-28 23:40 | NUR ---
PT C/O ITCHING. ON-CALL PHYSICIAN NOTIFIED, NEW ORDER FOR BENADRYL OBTAINED.
[2021-04-29 04:52] LABS: Hematocrit 36.7 % (33.0-51.0); Hemoglobin 12.2 g/dL (11.5-16.0); Mean Corpuscular HGB Conc 33.2 g/dL (31.5-36.5); Mean Corpuscular Volume 90 fL (80-100); Mean Platelet Volume 9.6 fL (9.1-12.4); Platelet Count 266 K/mm3 (150-400); RDW Coefficient Variation 13.2 % (11.7-14.2); RDW Standard Deviation 43.5 fL (35.1-46.3); Red Blood Cell Count 4.07 M/mm3 (3.80-5.20); White Blood Cell Count 10.07 K/mm3 (4.00-11.30)
[2021-04-29 05:13] LABS: Anion Gap 4 mmol/L (6-16); Blood Urea Nitrogen 12 mg/dL (8-24); Bun/Creatinine Ratio 15.4 (12.0-20.0); CO2, Blood 27 mmol/L (21-32); Chloride, Blood 106 mmol/L (98-108); Creatinine, Blood 0.78 mg/dL (0.40-1.00); Glomerular Filtration Rate >60 (60-); Glucose, Blood 112 mg/dL (70-99); Potassium, Blood 3.3 mmol/L (3.5-5.5); Sodium, Blood 137 mmol/L (136-145)
--- NOTE | 2021-04-29 05:45 | NUR ---
SHIFT SUMMARY: PATTI IS A&OX4. VSS, NO ACUTE EVENTS OVERNIGHT. SHE IS TOLERATING PO INTAKE WELL, INDEPENDENT IN THE ROOM, AND USING THE INCENTIVE SPIROMETER. SHE DID WEAR THE CPAP WHILE SLEEPING THIS SHIFT. SHE USES THE CALL LIGHT APPROPRIATELY. IV TO RIGHT FOREARM PATENT. ABDOMINAL BINDER OFFERED FOR COMFORT. SHE IS LYING IN BED WITH THE CPAP IN PLACE, RESPIRATIONS EVEN AND UNLABORED. CALL LIGHT IN REACH. WILL REPORT TO DAY SHIFT RN.
--- NOTE | 2021-04-29 16:38 | NUR ---
SHIFT SUMMARY A/OX4 AND V/S/S STABLE. POD2 LAP SIGMOID COLECTOMY WITH REMOVAL OF L OVARY. INCISIONS C/D/I, OPEN TO AIR WITH DERMABOND. INDEPENDENT IN RM, AMBULATING HALLWAYS. NO FLATUS REPORTED AND NO BOWEL MOVEMENT THIS SHIFT. PT STATES SHE "FEELS LIKE SHE NEEDS TO PASS GAS, BUT NOTHING IS COMING OUT." ENCOURAGING PT TO CONTINUE AMBULATING WHEN SHE FEELS UP TO IT. PT SHOWERED TODAY, AND BEING TREATED PER EMAR FOR PAIN WITH PO PAIN MEDICATIONS. PT PRACTICING DEEP BREATHING WITH I/S. VOIDING WELL. WILL REPORT TO ONCOMING RN.
--- NOTE | 2021-04-29 18:25 | NUR ---
PT REPORTS PASSING FLATUS.
[2021-04-30 04:14] LABS: Albumin, Blood 2.1 g/dL (3.4-5.0); Anion Gap 4 mmol/L (6-16); Blood Urea Nitrogen 8 mg/dL (8-24); CO2, Blood 27 mmol/L (21-32); Calcium, Blood 8.6 mg/dL (8.5-10.1); Chloride, Blood 109 mmol/L (98-108); Creatinine, Blood 0.57 mg/dL (0.40-1.00); Glomerular Filtration Rate >60 (60-); Glucose, Blood 137 mg/dL (70-99); Phosphorus, Blood 3.5 mg/dL (2.5-4.9); Potassium, Blood 3.7 mmol/L (3.5-5.5); Sodium, Blood 140 mmol/L (136-145)
--- NOTE | 2021-04-30 08:05 | NUR ---
SHIFT SUMMARY: PATTI IS A&OX4, INDEPENDENT IN THE ROOM, TOLERATING PO INTAKE WELL, PASSING FLATUS AND ONE BM THIS SHIFT. IV TO L FOREARM PATENT. ABDOMINAL BINDER FOR COMFORT. SHE STATES THAT THE MAJORITY OF HER PAIN IS AT THE RIGHT LOWER LAP SITE, OTHERWISE SHE FEELS HER PAIN IS WELL CONTROLLED. SHE IS SITTING UP IN BED WITH THE CALL LIGHT IN REACH. REPORT GIVEN TO DAY SHIFT RN.
--- NOTE | 2021-04-30 13:27 | NUR ---
EDEMA PT C/O INCREASED EDEMA TO BLE AND INCREASED PAIN TO L KNEE. ICE PACKS PLACED TO L KNEE FOR COMFORT AND ADVISED PT TO ELEVATE BLE WHEN AT REST.
--- NOTE | 2021-04-30 13:57 | NUR ---
EDEMA TO BLE PT C/O OF INCREASED EDEMA TO BLE AND INCREASED PAIN TO L KNEE. ICE PACKS PROVIDED FOR COMFORT. ENCOURAGED PT TO ELEVATE LEGS WHEN AT REST. REPORTED TO DR PATEL. ADVISED TO ENCOURGE PT TO ALSO AMBULATE. ORDERS OBTAINED FOR OT DOSE LASIX.
--- NOTE | 2021-04-30 17:25 | NUR ---
SUMMARY NO ACUTE CHANGES T/O SHIFT. PT MEDICATED PER ORDERS FOR NAUSEA W/PAIN MEDS. PT HAS BLE EDEMA, DISCUSSED W/DR PATEL AND OT DOSE OF LASIX ORDERED AND ADMINISTERED. TOLERATING FULL LIQUID DIET. INDEPENDENT IN ROOM. CALL LIGHT IN REACH.
--- NOTE | 2021-05-01 04:42 | NUR ---
SHIFT SUMMARY POD 4 FOR A LAP SIGMOID COLECTOMY W/ L OOPHARECTOMY. X5 LAP ABD SITES OPEN TO AIR W/ SOME BRUISING JOSE INCISION SITES. PT HAS REPORTED SOME PAIN AND WAS MEDICATED PER EMAR. PT IS TOLERATING FULL LIQUID DIET AND FLUIDS W/O REPORT OF N/V. PT DOES REPORT NAUSEA W/PAIN MEDS AND WAS MEDICATED PER EMAR. PT IS INDEPENDENT IN THE ROOM AND CALLS APPROPRIATELY. PT IS A&O X4 AND VERY PLEASANT. PT WORE HER CPAP WHILE SLEEPING. CURRENTLY RESTING IN HER BED AND CALL LIGHT IS WITHIN REACH.
[2021-05-01 04:43] LABS: BASOPHILS ABSOLUTE AUTO 0.05 K/mm3 (0.00-0.23); BASOPHILS PERCENT AUTO 1 % (0-2); EOSINOPHILS ABSOLUTE AUTO 0.24 K/mm3 (0.00-0.68); EOSINOPHILS PERCENT AUTO 3 % (0-6); Hematocrit 37.2 % (33.0-51.0); Hemoglobin 12.3 g/dL (11.5-16.0); IMMATURE GRAN ABSOLUTE AUTO 0.05 K/mm3 (0.00-0.10); IMMATURE GRAN PERCENT AUTO 1 % (0-1); LYMPHOCYTES ABSOLUTE AUTO 2.13 K/mm3 (0.84-5.20); LYMPHOCYTES PERCENT AUTO 30 % (21-46); MONOCYTES ABSOLUTE AUTO 0.62 K/mm3 (0.16-1.47); MONOCYTES PERCENT AUTO 9 % (4-13); Mean Corpuscular HGB 29.8 pg (26.0-34.0); Mean Corpuscular HGB Conc 33.1 g/dL (31.5-36.5); Mean Corpuscular Volume 90 fL (80-100); Mean Platelet Volume 9.5 fL (9.1-12.4); NEUTROPHILS ABSOLUTE AUTO 4.11 K/mm3 (1.96-9.15); NEUTROPHILS PERCENT AUTO 57 % (41-73); Platelet Count 300 K/mm3 (150-400); RDW Coefficient Variation 13.2 % (11.7-14.2); RDW Standard Deviation 43.7 fL (35.1-46.3); Red Blood Cell Count 4.13 M/mm3 (3.80-5.20)
[2021-05-01] MEDS ORDERED: OXYC5 PO (10:08)
[2021-05-01] MEDS ORDERED: Acetaminophen650 M1 PO (10:08)
--- NOTE | 2021-05-01 12:59 | NUR ---
DISCHARGED DC'D IV, CATHETER INTACT. REVIEWED DC INSTRUCTIONS W/PT; VERBALIZED UNDERSTANDING. PT LEFT UNIT IN WC W/POSSESSIONS, DC PAPERWORK AND PRESCRIPTION IN HAND TO RIDE WAITING OUTSIDE.
== END 2021-05-01 12:55 | disposition home or self-care (01) | DRG 853 ==
LOC: ER 01:27 → MEDS 01:36 → SURS 04-25 10:13
PROVIDERS: Internal Medicine; Obstetrics & Gynecology; Student in an Organized Health Care Education/Training Program; Surgery; ADMIT Family Medicine
PROC: 8E0W4CZ Robotic Assisted Procedure of Trunk Region, Percutaneous Endoscopic Approach (ICD-10-PCS; 2021-04-27)
PROC: 0UB14ZZ Excision of Left Ovary, Percutaneous Endoscopic Approach (ICD-10-PCS; principal; 2021-04-27 11:30)
PROC: 0DBN4ZZ Excision of Sigmoid Colon, Percutaneous Endoscopic Approach (ICD-10-PCS; 2021-04-27 11:30)
DX: A41.9 Sepsis, unspecified organism (principal); K65.0 Generalized (acute) peritonitis; K57.20 Diverticulitis of large intestine with perforation and abscess without bleeding; N70.02 Acute oophoritis; I87.2 Venous insufficiency (chronic) (peripheral); E87.6 Hypokalemia; Z20.822 Contact with and (suspected) exposure to COVID-19; G47.33 Obstructive sleep apnea (adult) (pediatric); F41.8 Other specified anxiety disorders; E66.01 Morbid (severe) obesity due to excess calories; Z99.89 Dependence on other enabling machines and devices; F17.210 Nicotine dependence, cigarettes, uncomplicated; Z71.6 Tobacco abuse counseling; Z68.38 Body mass index [BMI] 38.0-38.9, adult; Z71.3 Dietary counseling and surveillance; Z90.710 Acquired absence of both cervix and uterus; Z88.0 Allergy status to penicillin; Z88.1 Allergy status to other antibiotic agents; Z79.899 Other long term (current) drug therapy
CPT/HCPCS: 36415; 74177; 80048; 80053; 80069; 81003; 83605; 84134; 85025; 85027; 88305; 88307; 94660; 94762; 96365-59; 96367; 96372; 96375; 96376; 99285-25; A9270; G0378; J0330; J0696; J1100; J1170; J1650; J1885; J2250; J2270; J2370; J2405; J2704; J2710; J3010; J7030; J7050; Q9967; U0004

== ENCOUNTER 2021-08-07 08:32 | Day surgery (SDC) | payer MEDICARE, OTHER ==
[~2021-08-07] VITALS: Ht 165.1 cm; Wt 102.9 kg
[~2021-08-07 08:32] MED LIST changes: +Acetaminophen650 M1 PO; +OXYC5 PO
[2021-08-07] MEDS ORDERED: CENTRUM SILVER1 EAC2 PO (09:03)
[2021-08-07] MEDS ORDERED: EXEDRIN (09:03)
== END 2021-08-07 10:59 | disposition home or self-care (01) ==
LOC: ORSCSDS 08:32
PROVIDERS: Surgery
PROC: 0DBM8ZX Excision of Descending Colon, Via Natural or Artificial Opening Endoscopic, Diagnostic (ICD-10-PCS; principal; 2021-08-07 09:45)
DX: Z90.49 Acquired absence of other specified parts of digestive tract (principal); Z86.010 Personal history of colon polyps; D12.4 Benign neoplasm of descending colon; R11.0 Nausea; F17.210 Nicotine dependence, cigarettes, uncomplicated; J44.9 Chronic obstructive pulmonary disease, unspecified; G47.33 Obstructive sleep apnea (adult) (pediatric); K21.9 Gastro-esophageal reflux disease without esophagitis; F41.9 Anxiety disorder, unspecified; Z79.899 Other long term (current) drug therapy; E66.01 Morbid (severe) obesity due to excess calories; Z68.37 Body mass index [BMI] 37.0-37.9, adult
CPT/HCPCS: 88305; J2250; J2704; J7120

== ENCOUNTER 2022-07-24 01:09 | Emergency (ER) | payer MEDICARE, OTHER ==
[~2022-07-24] VITALS: Ht 165.1 cm; Wt 106.6 kg
[~2022-07-24 01:09] MED LIST changes: +CENTRUM SILVER1 EAC2 PO; +EXEDRIN
[2022-07-24 04:28] LABS: BASOPHILS ABSOLUTE AUTO 0.07 K/mm3 (0.00-0.23); BASOPHILS PERCENT AUTO 1 % (0-2); EOSINOPHILS ABSOLUTE AUTO 0.08 K/mm3 (0.00-0.68); EOSINOPHILS PERCENT AUTO 1 % (0-6); Hematocrit 42.4 % (33.0-51.0); Hemoglobin 14.3 g/dL (11.5-16.0); IMMATURE GRAN ABSOLUTE AUTO 0.03 K/mm3 (0.00-0.10); IMMATURE GRAN PERCENT AUTO 0 % (0-1); LYMPHOCYTES ABSOLUTE AUTO 3.01 K/mm3 (0.84-5.20); LYMPHOCYTES PERCENT AUTO 30 % (21-46); MONOCYTES ABSOLUTE AUTO 0.64 K/mm3 (0.16-1.47); MONOCYTES PERCENT AUTO 6 % (4-13); Mean Corpuscular HGB 29.2 pg (26.0-34.0); Mean Corpuscular HGB Conc 33.7 g/dL (31.5-36.5); Mean Corpuscular Volume 87 fL (80-100); Mean Platelet Volume 9.4 fL (9.1-12.4); NEUTROPHILS PERCENT AUTO 62 % (41-73); Platelet Count 225 K/mm3 (150-400); RDW Standard Deviation 41.1 fL (35.1-46.3); Red Blood Cell Count 4.89 M/mm3 (3.80-5.20); White Blood Cell Count 9.93 K/mm3 (4.00-11.30)
[2022-07-24 04:44] LABS: Albumin, Blood 3.5 g/dL (3.4-5.0); Albumin/Globulin Ratio 0.9 (0.8-1.8); Bilirubin, Total 0.4 mg/dL (0.1-1.0); Bun/Creatinine Ratio 15.1 (12.0-20.0); Calcium, Blood 9.3 mg/dL (8.5-10.1); Creatinine, Blood 0.6 mg/dL (0.40-1.00); Globulin, Blood 3.8 g/dL (2.2-4.0); Potassium, Blood 3.6 mmol/L (3.5-5.5); Total Protein, Blood 7.3 g/dL (6.4-8.2)
[2022-07-24 05:53] LABS: Source, Urine Clean Catch
[2022-07-24 05:56] LABS: Appearance, Urine Clear (Clear); Bilirubin, Urine Neg (Neg); Blood, Urine Neg (Neg); Color, Urine Yellow (P-Yellow); Glucose Qualitative, Urine Neg (Neg); Ketones, Urine Neg (Neg); Leukocyte Esterase, Urine Neg (Neg); Nitrite, Urine Neg (Neg); Protein, Urine Neg (Neg); Specific Gravity, Urine 1.015 (1.003-1.022); Urobilinogen, Urine NORM (Normal)
[2022-07-24 06:00] LABS: Influenza A, PCR NEGATIVE (NEGATIVE); Influenza B, PCR NEGATIVE (NEGATIVE); Resp Syncytial Virus, PCR NEGATIVE (NEGATIVE); SARS-Cov-2 (COVID-19) PCR, MMC NEGATIVE (NEGATIVE)
[2022-07-24] MEDS ORDERED: PROC5 PO (06:46)
== END 2022-07-24 07:50 | disposition home or self-care (01) ==
LOC: ER 01:09
PROVIDERS: Student in an Organized Health Care Education/Training Program
DX: R11.2 Nausea with vomiting, unspecified (principal); R10.9 Unspecified abdominal pain; R19.7 Diarrhea, unspecified; F17.210 Nicotine dependence, cigarettes, uncomplicated; Z20.822 Contact with and (suspected) exposure to COVID-19; Z88.1 Allergy status to other antibiotic agents; Z79.899 Other long term (current) drug therapy
CPT/HCPCS: 0241U; 74177; 80053; 81003; 85025; 93005; 93010; J1790; J2270; Q9967